=== PATIENT | male | born 1950 | race Caucasian/White ===

== ENCOUNTER 2019-10-27 23:26 | Inpatient (IN) | payer BC, MEDICARE ==
[2019-10-28] MEDS ORDERED: Vancomycin 1 GM/200 ML BAG ONE (00:16)
[2019-10-28 00:25] LABS: ALT (SGPT) 13 U/L (8-55); AST (SGOT) 15 U/L (5-34); Albumin 2.6 g/dL (3.4-4.8); Alkaline Phosphatase 125 U/L (40-110); Anion Gap 11 mmol/L (10-20); BUN (Urea Nitrogen) 37 mg/dL (8.4-25.7); Bilirubin, Total 0.5 mg/dL (0.2-1.2); Calc. Creatinine Clearance 0 mL/min (70-130); Calcium 8.7 mg/dL (7.8-10.44); Carbon Dioxide 33 mmol/L (23-31); Chloride 97 mmol/L (98-107); Estimated GFR-MDRD 86; Globulin 3.7 g/dL (2.4-3.5); Glucose 126 mg/dL (80-115); Potassium 3.8 mmol/L (3.5-5.1); Protein, Total 6.3 g/dL (5.8-8.1); Sodium 137 mmol/L (136-145)
[2019-10-28 00:34] LABS: Band 28 % (5-11); Eosinophils 1 % (0-10); Hemoglobin 16.1 g/dL (14.0-18.0); Lymphocytes 7 % (21-51); MDiff Complete? YES; Mean Corpuscular HGB CONC 32.1 g/dL (32.0-36.0); Mean Corpuscular Hemoglobin 30.9 pg (27.0-31.0); Mean Corpuscular Volume 96.2 fL (78.0-98.0); Mean Platelet Volume 10.5 fL (7.4-10.4); Monocytes 21 % (0-10); Neutrophil 43 % (42-75); Platelet Count 176 thou/uL (130-400); RBC Distribution Width 11.8 % (11.5-14.5); Red Blood Cell (RBC) Count 5.21 mill/uL (4.70-6.10); White Blood Cell (WBC) Count 17.5 thou/uL (4.8-10.8)
[2019-10-28] MEDS ORDERED: Ampicillin 2 GM VIAL ONE (01:21)
[2019-10-28] MEDS ORDERED: Ampicillin/Sulbactam 3 GM in Sodium Chloride 0.9% 100 ML IVPB SCH (01:30)
[2019-10-28] MEDS ORDERED: WATER IVPB SCH (04:00)
[2019-10-28] MEDS ORDERED: AMPHOTERICIN B IVPB SCH (04:00)
[2019-10-28] MEDS ORDERED: DEXTROSE 5% IVPB SCH (04:00)
[2019-10-28 04:52] VITALS: BMI 14.3
[2019-10-28] MEDS: Admixture Fee 1 EACH in Dextrose 5% in Water 10 ML FS SCH ×2 (05:18→09:35)
[2019-10-28] MEDS ORDERED: Acetaminophen 325 MG TAB PO PRN (07:37)
[2019-10-28] MEDS ORDERED: cloNIDine 0.1 MG TAB PO PRN (07:37)
[2019-10-28] MEDS ORDERED: Morphine 2 MG/ML SYRINGE SLOW IVP PRN (07:37)
[2019-10-28] MEDS ORDERED: Labetalol HCl 100 MG/20 ML VIAL SLOW IVP PRN (07:37)
[2019-10-28] MEDS ORDERED: Promethazine HCl 12.5 MG, Admixture Fee 1 EACH in Sodium Chloride 0.9% 50 ML IVPB PRN (07:37)
[2019-10-28] MEDS ORDERED: hydrALAZINE 20 MG/ML VIAL SLOW IVP PRN (07:37)
--- NOTE | 2019-10-28 07:42 | PDOC.HHP ---
Hospitalist HPI - History of Present Illness facial rash and swelling History of Present Illness: Patient is a 69 year old male with PMH CAD/2 stents, HTN who presents to ED for 10 day of L facial and eye swelling, pain. He reports very painful but still in good spirits. it is visibly draining a serosanguenous fluid. unable to open eye. reviewed CT with ED providers and appears to be abscess extending from L mandible to forehead including the eye. appears possibly fungal infection. vitals stable, mild tachycardia. WBC 17, CO2 33, Cr -0.88, CRP elevated, given IV abx vanc and unasyn and Dr Moura of [facility] consulted by ED and wiill see in AM, they are aware of seriousness of condition. Hospitalist ROS - Review of Systems Eyes: reports: pain, other (L eye swelling and pain) ENT: reports: ear pain, nose pain, mouth pain, mouth swelling, throat pain, other (L side of face pain and drainage) Respiratory: denies: cough, dry, shortness of breath, hemoptysis, SOB with excertion, pleuritic pain, sputum, wheezing, other Cardiovascular: denies: chest pain, palpitations, orthopnea, paroxysmal noc. dyspnea, edema, light headedness, other Gastrointestinal: denies: nausea, vomiting, abdominal pain, diarrhea, constipation, melena, hematochezia, other Genitourinary: denies: dysuria, frequency, incontinence, hematuria, retention, other Musculoskeletal: denies: neck pain, shoulder pain, arm pain, back pain, hand pain, leg pain, foot pain, other Skin: reports: rash, lesions. denies: yahir, bruising, other Neurological: denies: weakness, numbness, incoordination, change in speech, confusion, seizures, other All other systems reviewed; all pertinent +/- noted in HPI/Subj - Medication Medications: Active Medications Generic Name Dose Route Start Last Admin Trade Name Freq PRN Reason Stop Dose Admin Amphotericin B 250 mg/ 250 mls @ 132.567 mls/hr 10/28/19 04:00 10/28/19 05:17 Dextrose/Water IVPB 10/28/19 08:00 250 mls NOW NAIN Administration Miscellaneous Medication 1 10 mls @ 0 mls/hr 10/28/19 09:00 10/28/19 05:18 each/ Dextrose/Water FS 10 mls DAILY NAIN Administration As Directed Hospitalist History - Past Medical History Other Medical History: COPD, HTN, HLD, [place] X2 - Past Surgical History Other Surgical History: CARDIAC STENT PLACEMENT, ANGIOPLASTY, HERNIA REPAIR,. - Family History Family History: reports: no pertinent history - Social History Other Social History: Social History includes FORMER DRINKER Patient denies alcohol use Patient denies drug use Patient currently uses tobacco smokes cigarettes daily Patient has smoked for 25 years Patient smokes 1/2 packs per day. - Exam General Appearance: NAD, awake alert, ill appearing Eye - other findings: PERRL EOMI ENT: normocephalic atraumatic ENT - other findings: extensive L facial swelling in the mouth to eye red and cannot open eye. Neck: supple, symmetric, no JVD, no thyromegaly, no lymphadenopathy, no carotid bruit Neck - other findings: swelling of skin, no throat swelling or pharynx Respiratory: CTAB, no wheezes, no rales, no ronchi, normal chest expansion, no tachypnea, normal percussion Gastrointestinal: soft, non-tender, non-distended, normal bowel sounds, no palpable masses, no hepatomegaly, no splenomegaly, no bruit Extremities: no cyanosis, no clubbing, no edema Skin: normal turgor, no lesions, no rashes Neurological: cranial nerve grossly intact, normal sensation to touch, no weakness, no focal deficits, no new deficit Musculoskeletal: normal tone, normal strength, no muscle wasting Psychiatric: normal affect, normal behavior, A&O x 3 Hospitalist Results - Labs Result Diagrams: 10/27/19 23:55 10/27/19 23:55 Lab results: WBC 17.5 thou/uL (4.8-10.8) H 10/27/19 23:55 Hgb 16.1 g/dL (14.0-18.0) 10/27/19 23:55 Hct 50.2 % (42.0-52.0) 10/27/19 23:55 MCV 96.2 fL (78.0-98.0) 10/27/19 23:55 Plt Count 176 thou/uL (130-400) 10/27/19 23:55 Band Neuts % (Manual) 28 % (5-11) H 10/27/19 23:55 ESR Westergren 35 mm/hr (Less than 20) 10/28/19 00:00 Sodium 137 mmol/L (136-145) 10/27/19 23:55 Potassium 3.8 mmol/L (3.5-5.1) 10/27/19 23:55 Chloride 97 mmol/L (98-107) L 10/27/19 23:55 Carbon Dioxide 33 mmol/L (23-31) H 10/27/19 23:55 BUN 37 mg/dL (8.4-25.7) H 10/27/19 23:55 Creatinine 0.88 mg/dL (0.7-1.3) 10/27/19 23:55 Glucose 126 mg/dL (80-115) H 10/27/19 23:55 Lactic Acid 1.7 mmol/L (0.5-2.2) 10/27/19 23:55 Calcium 8.7 mg/dL (7.8-10.44) 10/27/19 23:55 Total Bilirubin 0.5 mg/dL (0.2-1.2) 10/27/19 23:55 AST 15 U/L (5-34) 10/27/19 23:55 ALT 13 U/L (8-55) 10/27/19 23:55 Alkaline Phosphatase 125 U/L (40-110) H 10/27/19 23:55 C-Reactive Protein 15.93 mg/dL (= or < 0.5) H 10/28/19 00:00 Serum Total Protein 6.3 g/dL (5.8-8.1) 10/27/19 23:55 Albumin 2.6 g/dL (3.4-4.8) L 10/27/19 23:55 Hospitalist H&P A/P - Plan Plan: # facial cellulitis # sepsis due to facial cellulitis and abscess suspect possible fungal vs bacterial abscess from dental origin, severe in appearance and concerning for mucormycosis or other fungal process - admit to IMCU - vanc, unasyn - given ampho B 1 dose and consult ID - [facility] Dr Moura to see, keep NPO, appreciate assistance
--- NOTE | 2019-10-28 08:19 | RAD ---
PORTABLE CHEST: HISTORY: COPD. Shortness of breath. COMPARISON: Comparison is made to a film of 2012. FINDINGS: Lungs show hyperexpansion consistent with COPD. No infiltrate or vascular congestion. Heart size no rmal. Old right rib fractures were again noted. IMPRESSION: Finding changes of chronic obstructive pulmonary disease. No acute process identified. POS: AGW
--- NOTE | 2019-10-28 09:19 | CT ---
PRELIMINARY REPORT/[facility]/EMERGENCY AFTER HOURS PROCEDURE: EXAM: CT Maxillofacial with Intravenous Contrast. CLINICAL HISTORY: Exam gross facial swelling no evidence of submandibular involvement. No airway comp romise. Gross eyelid swelling with drainage from eye. EOM intact no periorbital pain with movement ho wever there is periorbital pain to palpation. Patient ANO x4 suspect complex facial cellulitis likely originated in dental origin TECHNIQUE: Axial computed tomography images of the face with intravenous contrast. Sagittal and coron al reformations performed. CONTRAST: With; ISOVUE 370,100mL COMPARISON: None provided. FINDINGS: BONES: No acute fracture or focal osseous lesion. The mandible is intact. Multilevel degenerative disc dise ase with multilevel facet spondylosis. SOFT TISSUES: A large rim-enhancing fluid collection with peripheral enhancement and foci of air in the lumen exten ds from the left 70 with a region and extends superiorly along the left hemimandible with involvement of the medial pterygoid muscle and masseter muscle, and into the left temporal region and overlying the zygoma with involvement of the inferior eyelid. Significant surrounding fat stranding is noted. The fluid collection measures 7.4 cm AP by 3.3 cm transverse by 15.4 cm craniocaudal. Atheroscleros is of the bilateral carotid vessels. SINUSES: Mucosal thickening of the bilateral maxillary sinuses. ORBITS: The orbits are normal. No retrobulbar hematoma or mass. IMPRESSION: Large rim-enhancing fluid collection with foci of air in the lumen consistent with an abscess extendi ng from the left submandibular region into the left temporal region and the inferior left eyelid with significant inflammatory change. ELECTRONICALLY SIGNED BY: Pako Palmer MD Oct 28, 2019 2:06:27 AM CDT This report is intended for review by the ordering physician only, in accordance of law. If you recei ve this report in error, please call [facility] at [phone]. FINAL REPORT CT NECK WITH CONTRAST: Date: FINDINGS: There is a large abscess involving the left neck and face. This abscess begins in the left submandibu lar region and is seen to extend to both sides of the mandible involving buccal and lingual surfaces. It involves the submandibular space and extends superior to involve the proposition player muscle on the lef t. It extends superiorly into the left temporal region and left orbit. No definite parapharyngeal or retropharyngeal extension. I am in agreement with the preliminary report issued by [facility]. POS: AGW
--- NOTE | 2019-10-28 09:30 | CON ---
DATE OF CONSULTATION: 10/28/2019 HISTORY OF PRESENT ILLNESS: Washington Gonzalez is a 69-year-old cachectic gentleman, who apparently came from home with facial swelling on the left side, foul-smelling discharge, left eye swollen. He is in the MICU, reason for consult. PAST MEDICAL HISTORY: Pertinent for COPD, hypertension, coronary artery disease. PREVIOUS SURGERIES: Cardiac stent, angioplasty, hernia repair. SOCIAL HISTORY: Still smokes half pack a day. Former drinker. MEDICATIONS: Medicine at this stage from home, unknown. ALLERGIES: UNKNOWN. REVIEW OF SYSTEMS: Otherwise, unremarkable. PHYSICAL EXAMINATION: GENERAL: He is cachectic, elderly gentleman with swelling on the left side of his face. Left eye is swollen, it is drooping. Foul-smelling discharge from the mouth. VITAL SIGNS: Temperature 98.6, blood pressure 120/66, respirations 18, pulse 80. CHEST: Decreased breath sounds. No wheezing. CARDIAC: Normal S1, S2. No gallops. ABDOMEN: No masses. LABORATORY DATA: White count 17,000, H and H are 16 and 50, platelet count is normal. Lytes are normal. ASSESSMENT: 1. Cellulitis, facial, posterior pharyngeal. 2. Chronic obstructive pulmonary disease. 3. Cachexia. PLAN: Continue antibiotics as ordered by Infectious Disease. Supportive care. Surgery to assess the extent of his infection. Appropriate intervention. Agree with ongoing neb treatments for underlying COPD. We will follow while in the MICU. I have added clindamycin for his anaerobic infection. 70 minutes of consultation note, 50% direct patient care. Job ID: [id number]
[2019-10-28] MEDS: Enoxaparin Sodium 40 MG/0.4 ML SYRINGE SC SCH ×2 (09:35→18:58)
[2019-10-28] MEDS: Polyethylene Glycol 3350 17 GM Packet PO SCH (09:36)
[2019-10-28] MEDS: Famotidine 20 MG TAB PO SCH ×2 (09:43→21:13)
--- NOTE | 2019-10-28 09:57 | CT ---
PRELIMINARY REPORT/[facility]/EMERGENCY AFTER HOURS PROCEDURE EXAM: CT Maxillofacial with Intravenous Contrast. CLINICAL HISTORY: Exam gross facial swelling no evidence of submandibular involvement. No airway compromise. Gross eyel id swelling with drainage from eye. EOM intact no periorbital pain with movement however there is per iorbital pain to palpation. Patient ANO x4 suspect complex facial cellulitis likely originated in den joshua origin TECHNIQUE: Axial computed tomography images of the face with intravenous contrast. Sagittal and coronal reformat ions performed. CONTRAST: With; ISOVUE 370,100mL COMPARISON: None provided. FINDINGS: BONES: No acute fracture or focal osseous lesion. The mandible is intact. Multilevel degenerative disc dise ase with multilevel facet spondylosis. SOFT TISSUES: A large rim-enhancing fluid collection with peripheral enhancement and foci of air in the lumen exten ds from the left 70 with a region and extends superiorly along the left hemimandible with involvement of the medial pterygoid muscle and masseter muscle, and into the left temporal region and overlying the zygoma with involvement of the inferior eyelid. Significant surrounding fat stranding is noted. The fluid collection measures 7.4 cm AP by 3.3 cm transverse by 15.4 cm craniocaudal. Atheroscleros is of the bilateral carotid vessels. SINUSES: Mucosal thickening of the bilateral maxillary sinuses. ORBITS: The orbits are normal. No retrobulbar hematoma or mass. IMPRESSION: Large rim-enhancing fluid collection with foci of air in the lumen consistent with an abscess extendi ng from the left submandibular region into the left temporal region and the inferior left eyelid with significant inflammatory change. ELECTRONICALLY SIGNED BY: Pako Palmer MD Oct 28, 2019 2:06:27 AM CDT This report is intended for review by the ordering physician only, in accordance of law. If you recei ve this report in error, please call [facility] at [phone]. FINAL REPORT CT FACE WITH CONTRAST: Axial tomograms were obtained with multiplanar reconstruction. INDICATION: Facial and periorbital cellulitis. FINDINGS: Extensive abscess is seen involving the left face. This abscess begins in the submandibular region a nd involves the submandibular and submental space. It is seen on both sides of the mandible involvi ng lingual and buccal structures of the left mandible. It extends superiorly over the left face invo lving the left masseter muscle. It extends to the left parotid gland posteriorly. It continues to e xtend superiorly over the left temporal region and left orbit. IMPRESSION: Extensive left facial abscess. I am in agreement with the preliminary report. POS: LAUREN
[2019-10-28] MEDS: Sodium Chloride 0.9% 1,000 ML IV SCH ×2 (10:04→21:24)
[2019-10-28] MEDS: Ampicillin/Sulbactam 3 GM in Sodium Chloride 0.9% 100 ML IVPB SCH ×3 (10:04→20:20)
[2019-10-28] MEDS: Vancomycin HCl 750 MG in Sodium Chloride 0.9% 250 ML 250 ML IVPB SCH (10:05)
[2019-10-28] MEDS ORDERED: Iopamidol-370 76% 500 ML 1 ML ONE (10:26)
[2019-10-28] MEDS: Clindamycin/D5W 600 MG in Premix Bag 1 BAG IVPB SCH ×2 (14:39→21:13)
[2019-10-28] MEDS: Saccharomyces boulardii 250 MG CAP PO SCH (21:13)
[2019-10-29] MEDS: Ampicillin/Sulbactam 3 GM in Sodium Chloride 0.9% 100 ML IVPB SCH ×3 (02:22→14:30)
[2019-10-29 04:20] LABS: Band 23 % (5-11); Eosinophils 3 % (0-10); Lymphocytes 7 % (21-51); MDiff Complete? YES; Mean Corpuscular Hemoglobin 31.7 pg (27.0-31.0); Mean Corpuscular Volume 99.1 fL (78.0-98.0); Mean Platelet Volume 10.4 fL (7.4-10.4); Monocytes 10 % (0-10); Myelocyte 1 % (0-0); Neutrophil 56 % (42-75); Platelet Count 163 thou/uL (130-400); RBC Distribution Width 11.8 % (11.5-14.5); Red Blood Cell (RBC) Count 4.41 mill/uL (4.70-6.10); White Blood Cell (WBC) Count 15.8 thou/uL (4.8-10.8)
[2019-10-29 04:24] LABS: ALT (SGPT) 10 U/L (8-55); AST (SGOT) 17 U/L (5-34); Albumin 2.2 g/dL (3.4-4.8); Alkaline Phosphatase 102 U/L (40-110); Anion Gap 9 mmol/L (10-20); BUN (Urea Nitrogen) 16 mg/dL (8.4-25.7); Bilirubin, Total 0.3 mg/dL (0.2-1.2); Calc. Creatinine Clearance 77 mL/min (70-130); Calcium 8.1 mg/dL (7.8-10.44); Carbon Dioxide 34 mmol/L (23-31); Chloride 104 mmol/L (98-107); Estimated GFR-MDRD Greater than 90; Glucose 88 mg/dL (80-115); Magnesium 1.9 mg/dL (1.6-2.6); Potassium 3.8 mmol/L (3.5-5.1); Protein, Total 5.2 g/dL (5.8-8.1); Sodium 143 mmol/L (136-145)
[2019-10-29] MEDS: Clindamycin/D5W 600 MG in Premix Bag 1 BAG IVPB SCH ×2 (06:16→14:22)
[2019-10-29] MEDS ORDERED: Lidocaine 1% w/Epinephrine 1:100K 20 ML VIAL ONE (06:59)
[2019-10-29] MEDS ORDERED: Chlorhexidine Gluconate 15 ML UDCUP SSP ONE (06:59)
[2019-10-29] MEDS ORDERED: Hydrocortisone 1% Cream 30 GM TUBE ONE (06:59)
[2019-10-29] MEDS ORDERED: Bacitracin Zinc Ointment 30 gm TUBE ONE (06:59)
[2019-10-29] MEDS ORDERED: Sodium Chloride 0.9% 10 ML ONE (07:42)
[2019-10-29] MEDS: Admixture Fee 1 EACH in Dextrose 5% in Water 10 ML FS SCH (09:24)
[2019-10-29] MEDS: Famotidine 20 MG TAB PO SCH ×2 (09:24→21:30)
[2019-10-29] MEDS: Polyethylene Glycol 3350 17 GM Packet PO SCH (09:25)
--- NOTE | 2019-10-29 09:29 | PDOC.HOSPP ---
- Subjective Encounter Date: 10/29/19 Encounter Time: 07:00 Subjective: no overnight events. This morning, no complaints of shortness of breath. Pending removal of infected implants. - Objective Vital Signs & Weight: Vital Signs (12 hours) Temp Pulse Ox 10/29/19 07:24 100 10/29/19 07:10 96.1 F L 10/29/19 04:57 98.1 F 10/29/19 00:00 97.2 F L Weight Admit Weight 105 lb 9.6 oz Weight 105 lb 9.6 oz Most Recent Monitor Data Heart Rate from ECG 93 NIBP 146/67 NIBP BP-Mean 93 Respiration from ECG 31 SpO2 100 I&O: 10/28/19 10/29/19 10/30/19 06:59 06:59 06:59 Intake Total 320 1725 Output Total 240 550 Balance 80 1175 Result Diagrams: 10/29/19 03:13 10/29/19 03:13 Hospitalist ROS - Review of Systems Constitutional: denies: fever, chills, sweats ENT: reports: mouth pain. denies: throat pain Respiratory: denies: cough, shortness of breath, wheezing Cardiovascular: denies: chest pain, palpitations, orthopnea, paroxysmal noc. dyspnea, edema Gastrointestinal: denies: nausea, vomiting - Medication Medications: Active Medications Generic Name Dose Route Start Last Admin Trade Name Freq PRN Reason Stop Dose Admin Enoxaparin Sodium 40 mg 10/28/19 09:00 10/28/19 18:58 Lovenox SC Not Given 0900 NAIN Famotidine 20 mg 10/28/19 09:00 10/29/19 09:24 Pepcid PO Not Given BID NAIN Miscellaneous Medication 1 10 mls @ 0 mls/hr 10/28/19 09:00 10/29/19 09:24 each/ Dextrose/Water FS Not Given DAILY NAIN As Directed Ampicillin Sodium/Sulbactam 100 mls @ 200 mls/hr 10/28/19 08:00 10/29/19 02: 22 Sodium 3 gm/ Sodium Chloride IVPB 100 mls Q6H NAIN Administration Sodium Chloride 1,000 mls @ 125 mls/hr 10/28/19 07:45 10/28/19 21:24 Normal Saline 0.9% IV 1,000 mls .Q8H NAIN Administration Vancomycin HCl 750 mg/ Sodium 250 mls @ 250 mls/hr 10/28/19 09:00 10/28/19 10 :05 Chloride IVPB 11/04/19 09:01 250 mls Q24HR NAIN Administration Clindamycin Phosphate/Dextrose 50 mls @ 100 mls/hr 10/28/19 14:00 10/29/19 06 :16 600 mg/ Device IVPB 50 mls Q8HR NAIN Administration Polyethylene Glycol 17 gm 10/28/19 09:00 10/29/19 09:25 Miralax PO Not Given DAILY NAIN Saccharomyces Boulardii 250 mg 10/28/19 21:00 10/28/19 21:13 Florastor PO 250 mg HS NAIN Administration Sodium Chloride 10 ml 10/28/19 09:00 10/28/19 21:13 Flush - Normal Saline IVF 10 ml Q12HR NAIN Administration - Exam General Appearance: awake alert General - other findings: in mild distress due to facial pain Eye - other findings: left periorbital swellind and drainage ENT - other findings: oral swelling, mostly on left; could not assess oral cavity due to swelling Heart: RRR, no murmur, no gallops Respiratory: no wheezes, no rales, no ronchi Respiratory - other findings: diffusely redued breath sounds; no wheezing, RR ~ 20 Extremities: no edema Hosp A/P - Plan #facial cellulitis #infected dental implants -pending removal of implants. -on clindamycin, unasyn, vanc; defer to ID regarding continuation of all three considering clindamycin has MRSA coverage and oral anaerobic coverage #COPD -curently stable -continue duoneb PRN SOB/wheezing #HTN -continue current regimen #dispoisition/ppx full code DVT PPx Lovenox GI PPx pepcid
[2019-10-29] MEDS: Sodium Chloride 0.9% 1,000 ML IV SCH (09:33)
[2019-10-29] MEDS ORDERED: Fentanyl 100 MCG/2 ML VIAL ONE (10:24)
[2019-10-29] MEDS ORDERED: HYDROmorphone 0.5 MG/0.5 ML SYRINGE ONE (10:24)
[2019-10-29] MEDS ORDERED: AFRIN NASAL MIST 15 ML BOT ONE (10:34)
[2019-10-29] MEDS ORDERED: Lidocaine 2% Jelly 5 ML TUBE ONE (10:34)
[2019-10-29] MEDS ORDERED: Phenylephrine 10 MG/ML VIAL ONE (11:17)
[2019-10-29] MEDS ORDERED: Lidocaine 1% PF 5 ML VIAL ONE (11:30)
[2019-10-29] MEDS ORDERED: Naloxone HCl 0.4 mg/ml Vial ONE (11:30)
[2019-10-29] MEDS ORDERED: PROPOFOL 200 MG/20 ML VIAL ONE (11:30)
[2019-10-29] MEDS ORDERED: PHENYLEPHRINE-NS 100 MCG/ML 10 ML SYRINGE ONE (11:30)
[2019-10-29] MEDS ORDERED: EPHEDRINE 25 MG/5 ML SYRINGE ONE (11:30)
[2019-10-29] MEDS ORDERED: Rocuronium Bromide 10 MG/ML (10ML VIAL) ONE (11:30)
[2019-10-29] MEDS ORDERED: Glycopyrrolate 0.2 MG/ML 5 ML SYRINGE ONE (11:30)
[2019-10-29] MEDS ORDERED: SUGAMMADEX SODIUM 200 MG/2 ML VIAL ONE (12:40)
[2019-10-29] MEDS: Vancomycin HCl 750 MG in Sodium Chloride 0.9% 250 ML 250 ML IVPB SCH (14:22)
--- NOTE | 2019-10-29 17:16 | CON ---
DATE OF CONSULTATION: 10/29/2019 REASON FOR CONSULTATION: Facial inflammatory process. HISTORY OF PRESENT ILLNESS: A 69-year-old who has a history of COPD, hypertension, and coronary artery disease with prior MT and cardiac stenting, history of alcoholism in the past, but not current, and chronic smoking, who developed jaw pain with swelling, which started to spread all the way to the periorbital tissues with marked periorbital edema, some blood and cloudy fluid emanating from mouth, apparently has some dental implants in the bottom, some headaches. No fever. Cannot make any statement on the status of his left vision because of the eyelid swelling, but he is not vomiting. No dyspnea or chest pain. No abdominal pain or diarrhea. Voiding without difficulty at least until more recently. He has no joint symptoms and no neurological symptoms. MEDICAL HISTORY: 1. COPD. 2. Hypertension. 3. Hyperlipidemia. 4. Coronary artery disease. 5. MT x2. 6. Alcoholism, in remission. 7. Chronic smoking, still active. SURGICAL HISTORY: 1. Hernia repair. 2. Stenting. 3. Angioplasty. SOCIAL HISTORY: As above. Lives with family. ALLERGIES: NONE. CURRENT MEDICATIONS: Include: 1. P.r.n. medications and inhalers. 2. Unasyn. 3. Clindamycin. 4. Enoxaparin. 5. Pepcid. 6. Vancomycin. PHYSICAL EXAMINATION: VITAL SIGNS: T-max 98, BP 119/64, pulse 95, respirations 20, and O2 saturation 99. SKIN: The erythema involving the left side of the face. He has areas of I and D by oral surgeon, which was carried out today with packing particularly in submandibular region. He had some teeth extracted apparently. HEENT: I was able to see his orbit on the left side and a little bit of conjunctival hyperemia, but the cornea appears clear and the pupils are constricted. There is a little bit of a whitish film overlying the orbit that is removable. The eye movements appear to be intact. The right orbit is normal. The pupils are equal. Oral cavity is difficult to examine. He does have significant amount of trismus. NECK: There is no jugular vein distention. LUNGS: Symmetric air entry. HEART: S1 and S2. Regular rate. No S3 or S4. ABDOMEN: Soft, not distended or tender except for the suprapubic area where there is an apparent fully distended bladder. When asked, the patient stated that he was not feeling the urge to urinate. GENITAL: Not particularly remarkable. EXTREMITIES: The patient has obvious wasting syndrome with temporal wasting and muscle wasting in the lower extremities and upper extremities. His pulses are 1+ in dorsalis pedis and he has quite significant onychodystrophy. He is able to move extremities. Plantar responses are flexor. No clonus. NEUROLOGIC: I was not able to fully interview the patient because he was just postoperatively under the effect of anesthesia and analgesia. LABORATORY DATA: White cell count was 17 and now 15, hemoglobin 14, platelets 163 with 28% bands down to 23%. Chemistry with a creatinine was 0.88 and 0.62. Liver profile is normal. CRP 15. Albumin 2.2. Serology, there is negative HIV from 2012 and negative hepatitis C from 2017. IMAGING STUDIES: We have a chest from 2 days ago with chronic obstructive lung disease, no infiltrates. Facial bone CT with gross facial swelling, no submandibular involvement, no air compromise. There is a large rim-enhancing fluid collection, foci of air in the lumen, consistent with an abscess extending from the left submandibular region into the left temporal region and inferior eyelid, significant inflammatory change. There is involvement of the tipple repairer space. It measures 7.4 x 3.3 x 15.4, which is quite large fluid collection. Soft tissue neck CT as above. ASSESSMENT: 1. History of alcoholism, in remission presumably. 2. Chronic smoking. 3. Decaying teeth. 4. Periodontal infection with extension to the tipple repairer space and then up towards the periorbital area, malar region. The patient is status post I and D of the area by oral surgeon. DISCUSSION: The patient has an odontogenic infection involving the tipple repairer space and extending towards the upper segments of the facial area, soft tissues and periorbital tissues. This is not an infection associated with sinus involvement and he does not have diabetes, so it is very likely that we have the usual oral elroy organisms, such as microaerophilic pathogens and strict anaerobes including streptococci, fusobacterium, prevotella, and so on. We will switch him to meropenem. Discontinue remainder antimicrobials and wait on culture results. Sometimes those patients may develop intracranial complications as well as involvement of vascular bundle and retropharyngeal space, but that is not apparent at this point in time. Job ID: [id number]
[2019-10-29] MEDS: MEROPENEM 1 GM/50 ML 1 GM in Premix Bag 1 BAG IVPB SCH (17:39)
[2019-10-29] MEDS: Saccharomyces boulardii 250 MG CAP PO SCH (21:30)
[2019-10-29] MEDS: Chlorhexidine Gluconate 15 ML UDCUP SSP SCH (21:30)
[2019-10-30] MEDS: Sodium Chloride 0.9% 1,000 ML IV SCH ×3 (02:04→23:44)
[2019-10-30] MEDS: MEROPENEM 1 GM/50 ML 1 GM in Premix Bag 1 BAG IVPB SCH ×4 (02:05→23:44)
[2019-10-30 04:13] LABS: Band 11 % (5-11); Hemoglobin 13.4 g/dL (14.0-18.0); Lymphocytes 9 % (21-51); MDiff Complete? YES; Mean Corpuscular HGB CONC 31.8 g/dL (32.0-36.0); Mean Corpuscular Hemoglobin 31.6 pg (27.0-31.0); Mean Corpuscular Volume 99.5 fL (78.0-98.0); Mean Platelet Volume 10.1 fL (7.4-10.4); Monocytes 9 % (0-10); Myelocyte 2 % (0-0); Neutrophil 69 % (42-75); Platelet Count 173 thou/uL (130-400); Platelet Morphology Comment Appears Adequate; RBC Distribution Width 11.9 % (11.5-14.5); Red Blood Cell (RBC) Count 4.22 mill/uL (4.70-6.10); White Blood Cell (WBC) Count 18.8 thou/uL (4.8-10.8)
[2019-10-30] MEDS: Chlorhexidine Gluconate 15 ML UDCUP SSP SCH ×2 (09:26→20:21)
[2019-10-30] MEDS: HYDROcodone/Acetaminophen 5/325 mg Tablet PO PRN (09:27)
[2019-10-30] MEDS: Famotidine 20 MG TAB PO SCH (09:27)
[2019-10-30] MEDS: Polyethylene Glycol 3350 17 GM Packet PO SCH (09:27)
[2019-10-30] MEDS: Enoxaparin Sodium 40 MG/0.4 ML SYRINGE SC SCH (09:27)
--- NOTE | 2019-10-30 13:38 | PRG ---
DATE OF SERVICE: 10/30/2019 SUBJECTIVE: A 69-year-old patient, status post surgical intervention for multiple facial abscesses. OBJECTIVE: VITAL SIGNS: Temperature 97, blood pressure 101/46, respiratory rate 18, and sats 100%. CHEST: Decreased breath sounds. No wheezing. CARDIAC: Normal S1 and S2. No gallops. ABDOMEN: No masses. ASSESSMENT: 1. Multiple facial abscess, status post I and D and multiple drains. 2. Respiratory failure. 3. Alcohol abuse. PLAN: Pulmonary Critical Care will follow. Antibiotic as per Infectious Disease. Supportive care. Job ID: [id number]
--- NOTE | 2019-10-30 14:10 | PRG ---
DATE OF SERVICE: 10/30/2019 SUBJECTIVE: The patient is awake, oriented, follows commands. Feels better. A little bit of pain in the abdomen. Feels his bladder is full right now. OBJECTIVE: VITAL SIGNS: Temperature max 98.1, blood pressure 101/46, heart rate is 99, O2 saturation 100% with mask. HEENT: Ocular movements are conjugate. Sclerae are white. Conjunctivae have cleared. HEART: S1 and S2. Regular rate. LUNGS: Symmetric air entry. ABDOMEN: With mild tenderness here and there, but soft, not distended. I did not actually see and evaluate any bladder distention, muscle wasting. NEUROLOGIC: He moves all extremities equally. LABORATORY DATA: Sodium 143, creatinine 0.62, albumin 2.2. White cell count is 18; but the bands are down to 11, which is a marked improvement; hemoglobin 13.4; and micro still waiting to result. ASSESSMENT AND DISCUSSION: Alcoholism in remission presumably, chronic smoking, decaying teeth, periodontal infection with extension of the food service aide space and then up towards the periorbital area, status post surgical debridement, likely polymicrobial elroy. Continue meropenem and supportive measures. Job ID: [id number]
--- NOTE | 2019-10-30 15:07 | PDOC.HOSPP ---
- Subjective Encounter Date: 10/30/19 Encounter Time: 09:00 Subjective: overnight, I&D of facial abscess and infected dental implant. This morning, feeling better, swelling improved. Has no complaints. - Objective Vital Signs & Weight: Vital Signs (12 hours) Temp Pulse Ox 10/30/19 11:27 97.7 F 10/30/19 08:00 98 10/30/19 07:25 98.0 F 10/30/19 04:00 97.9 F Weight Admit Weight 105 lb 9.6 oz Weight 105 lb 9.6 oz Most Recent Monitor Data Heart Rate from ECG 99 NIBP 101/46 NIBP BP-Mean 64 Respiration from ECG 27 SpO2 100 I&O: 10/29/19 10/30/19 10/31/19 06:59 06:59 06:59 Intake Total 3125 Output Total 550 Balance 2575 Result Diagrams: 10/30/19 03:16 10/29/19 03:13 Hospitalist ROS - Review of Systems Constitutional: denies: chills, sweats ENT: denies: mouth pain, throat pain Respiratory: denies: cough, shortness of breath, pleuritic pain Cardiovascular: denies: chest pain, palpitations, light headedness Gastrointestinal: denies: nausea, vomiting - Medication Medications: Active Medications Generic Name Dose Route Start Last Admin Trade Name Freq PRN Reason Stop Dose Admin Hydrocodone Bitart/Acetaminophen 1 tab 10/28/19 07:37 10/30/19 09:27 [place] 5/325 PO 1 tab Q4H PRN Administration Moderate Pain (4-6) Chlorhexidine Gluconate 15 ml 10/29/19 21:00 10/30/19 09:26 Chlorhexidine Gluconate SSP 15 ml BID NAIN Administration Enoxaparin Sodium 40 mg 10/28/19 09:00 10/30/19 09:27 Lovenox SC 40 mg 0900 NAIN Administration Famotidine 20 mg 10/28/19 09:00 10/30/19 09:27 Pepcid PO 20 mg BID NAIN Administration Sodium Chloride 1,000 mls @ 125 mls/hr 10/28/19 07:45 10/30/19 02:04 Normal Saline 0.9% IV 1,000 mls .Q8H NAIN Administration Meropenem 1 gm/ Device 50 mls @ 100 mls/hr 10/29/19 16:00 10/30/19 09:26 IVPB 50 mls 0800,1600,2359 NAIN Administration Polyethylene Glycol 17 gm 10/28/19 09:00 10/30/19 09:27 Miralax PO 17 gm DAILY NAIN Administration Saccharomyces Boulardii 250 mg 10/28/19 21:00 10/29/19 21:30 Florastor PO 250 mg HS NAIN Administration Sodium Chloride 10 ml 10/28/19 09:00 10/30/19 09:28 Flush - Normal Saline IVF 10 ml Q12HR NAIN Administration - Exam General Appearance: NAD, awake alert ENT - other findings: clean bandages overyling head, neck, and maxillary drainage tubes. Heart: RRR, no murmur, no gallops, no rubs Respiratory: CTAB, no wheezes, no rales, no ronchi Respiratory - other findings: reduced breath sound throughout likely due to lack of effort Extremities: no edema Hosp A/P - Plan #facial abscesses #infected dental implants -POD 1 s/p I&D; tolerated procedure well -continue meropenem per ID for polymicrobial coverage pending wound cultures #COPD -curently stable -continue duoneb PRN SOB/wheezing #HTN -continue current regimen #dispoisition/ppx full code DVT PPx Lovenox GI PPx no Ix Transfer to medical floor if stable overnight
[2019-10-31 04:54] LABS: Anion Gap 13 mmol/L (10-20); BUN (Urea Nitrogen) 15 mg/dL (8.4-25.7); Calc. Creatinine Clearance 68 mL/min (70-130); Calcium 8.1 mg/dL (7.8-10.44); Carbon Dioxide 30 mmol/L (23-31); Chloride 106 mmol/L (98-107); Estimated GFR-MDRD Greater than 90; Glucose 73 mg/dL (80-115); Potassium 3.8 mmol/L (3.5-5.1); Sodium 145 mmol/L (136-145)
[2019-10-31 05:02] LABS: Band 11 % (5-11); Hemoglobin 12.7 g/dL (14.0-18.0); Lymphocytes 5 % (21-51); MDiff Complete? YES; Mean Corpuscular HGB CONC 32.5 g/dL (32.0-36.0); Mean Corpuscular Volume 98.6 fL (78.0-98.0); Mean Platelet Volume 10.2 fL (7.4-10.4); Monocytes 5 % (0-10); Myelocyte 2 % (0-0); Neutrophil 77 % (42-75); Platelet Count 194 thou/uL (130-400); RBC Distribution Width 11.9 % (11.5-14.5); Red Blood Cell (RBC) Count 3.98 mill/uL (4.70-6.10); White Blood Cell (WBC) Count 18.2 thou/uL (4.8-10.8)
--- NOTE | 2019-10-31 07:41 | PDOC.HOSPP ---
- Subjective Encounter Date: 10/31/19 Encounter Time: 07:00 Subjective: no overnight events. this morning, feeling well and has no complaints. - Objective Vital Signs & Weight: Vital Signs (12 hours) Temp 10/31/19 07:20 98.8 F 10/31/19 03:40 97.6 F 10/31/19 00:40 98.1 F Weight Admit Weight 105 lb 9.6 oz Weight 105 lb 9.6 oz Most Recent Monitor Data Heart Rate from ECG 94 NIBP 139/91 NIBP BP-Mean 107 Respiration from ECG 23 SpO2 97 I&O: 10/30/19 10/31/19 11/01/19 06:59 06:59 06:59 Intake Total 3125 2387.5 Output Total 550 Balance 2575 2387.5 Result Diagrams: 10/31/19 03:24 10/31/19 03:24 Hospitalist ROS - Review of Systems Constitutional: denies: chills, sweats Eyes: denies: pain ENT: denies: ear pain, nose pain, mouth pain Respiratory: denies: cough, shortness of breath Cardiovascular: denies: chest pain, palpitations Gastrointestinal: denies: nausea, vomiting - Medication Medications: Active Medications Generic Name Dose Route Start Last Admin Trade Name Freq PRN Reason Stop Dose Admin Hydrocodone Bitart/Acetaminophen 1 tab 10/28/19 07:37 10/30/19 09:27 [place] 5/325 PO 1 tab Q4H PRN Administration Moderate Pain (4-6) Chlorhexidine Gluconate 15 ml 10/29/19 21:00 10/30/19 20:21 Chlorhexidine Gluconate SSP 15 ml BID NAIN Administration Enoxaparin Sodium 40 mg 10/28/19 09:00 10/30/19 09:27 Lovenox SC 40 mg 0900 NAIN Administration Sodium Chloride 1,000 mls @ 125 mls/hr 10/28/19 07:45 10/30/19 23:44 Normal Saline 0.9% IV 1,000 mls .Q8H NAIN Administration Meropenem 1 gm/ Device 50 mls @ 100 mls/hr 10/29/19 16:00 10/30/19 23:44 IVPB 50 mls 0800,1600,2359 NAIN Administration Morphine Sulfate 2 mg 10/28/19 07:37 10/30/19 18:30 Morphine SLOW IVP 2 mg Q4H PRN Administration severe pain 4-10 Polyethylene Glycol 17 gm 10/28/19 09:00 10/30/19 09:27 Miralax PO 17 gm DAILY NAIN Administration Sodium Chloride 10 ml 10/28/19 09:00 10/30/19 20:21 Flush - Normal Saline IVF 10 ml Q12HR NAIN Administration - Exam General Appearance: NAD, awake alert Eye: PERRL ENT - other findings: facial swelling improved. Dressings with no fresh blood Heart: RRR, no murmur, no gallops Respiratory: CTAB, no wheezes, no rales Respiratory - other findings: mildly reduced breath sounds throughout Gastrointestinal: soft, non-tender, non-distended, normal bowel sounds Extremities: no edema Psychiatric: normal affect, normal behavior, oriented to person, oriented to time. negative: oriented to place Hosp A/P - Plan #facial abscesses #infected dental implants -POD 2 s/p I&D; tolerated procedure well -continue meropenem per ID for polymicrobial coverage pending wound cultures #COPD -curently stable -continue duoneb PRN SOB/wheezing #HTN -continue current regimen #dispoisition/ppx full code DVT PPx Lovenox GI PPx no Ix Transfer to medical floor
[2019-10-31] MEDS: Sodium Chloride 0.9% 1,000 ML IV SCH ×4 (09:42→23:30)
[2019-10-31] MEDS: MEROPENEM 1 GM/50 ML 1 GM in Premix Bag 1 BAG IVPB SCH ×3 (09:42→23:30)
[2019-10-31] MEDS: Chlorhexidine Gluconate 15 ML UDCUP SSP SCH ×2 (09:44→21:02)
[2019-10-31] MEDS: Enoxaparin Sodium 40 MG/0.4 ML SYRINGE SC SCH (09:44)
[2019-10-31] MEDS: Polyethylene Glycol 3350 17 GM Packet PO SCH (09:45)
--- NOTE | 2019-10-31 10:20 | PRG ---
DATE OF SERVICE: 10/31/2019 SUBJECTIVE: A 69-year-old gentleman. This morning, he is much more awake, alert, and responsive. OBJECTIVE: VITAL SIGNS: Temperature 98, blood pressure 139/91, saturations 96% on room air, respiratory rate 18. GENERAL: Much improvement in his facial swelling and edema. CHEST: Decreased breath sounds. No wheezing. CARDIAC: Normal S1, S2. No gallops. ABDOMEN: No masses. IMPRESSION: 1. Multiple anaerobic infections, face and neck. 2. Alcohol abuse. 3. Tobacco abuse. 4. Chronic obstructive pulmonary disease. PLAN: Antibiotics per Infectious Disease. Pulmonary has not much to offer. Please call if needed. Job ID: [id number]
[2019-11-01 06:46] LABS: Band 13 % (5-11); Hemoglobin 12.4 g/dL (14.0-18.0); Lymphocytes 7 % (21-51); MDiff Complete? YES; Mean Corpuscular HGB CONC 33.3 g/dL (32.0-36.0); Mean Corpuscular Hemoglobin 32.3 pg (27.0-31.0); Mean Platelet Volume 10.5 fL (7.4-10.4); Monocytes 8 % (0-10); Myelocyte 4 % (0-0); Neutrophil 68 % (42-75); Platelet Count 172 thou/uL (130-400); RBC Distribution Width 12.1 % (11.5-14.5); Red Blood Cell (RBC) Count 3.85 mill/uL (4.70-6.10); White Blood Cell (WBC) Count 10.5 thou/uL (4.8-10.8)
[2019-11-01] MEDS: Sodium Chloride 0.9% 1,000 ML IV SCH ×2 (08:14→15:53)
[2019-11-01] MEDS: Enoxaparin Sodium 40 MG/0.4 ML SYRINGE SC SCH (08:14)
[2019-11-01] MEDS: Chlorhexidine Gluconate 15 ML UDCUP SSP SCH ×2 (08:14→21:22)
[2019-11-01] MEDS: MEROPENEM 1 GM/50 ML 1 GM in Premix Bag 1 BAG IVPB SCH ×2 (08:14→15:53)
[2019-11-01] MEDS: Polyethylene Glycol 3350 17 GM Packet PO SCH (08:15)
[2019-11-01] MEDS ORDERED: Mometasone 200 MCG/Formoterol 5 MCG 120 PUFF INHALER INH SCH (12:30)
--- NOTE | 2019-11-01 13:51 | PRG ---
DATE OF SERVICE: 11/01/2019 SUBJECTIVE: Much improved orbit on the left side and now it is clearly visible. The conjunctivae are normal. He is able to close his eyes. He still has a dressing in place over the surgical incisions. Trismus is much improved. He has no breathing issues. No abdominal pain or diarrhea. He has been afebrile. OBJECTIVE: VITAL SIGNS: Blood pressure 130/70, pulse 76, respirations 18 to 20, O2 saturation 93%. LUNGS: Clear to auscultation and percussion. HEART: S1 and S2. Regular rate. ABDOMEN: Soft, not distended. LABORATORY DATA: White cell count is down to 10.5, hemoglobin 12.4, platelets 172. Creatinine 0.7. Microbiology with again still polymicrobial elroy likely the usual pathogens such as one sees in oral cavity is bacteria Prevotella and so on. The patient with steady improvement, I think eventually will be able to transition to oral Augmentin for continuation of therapy. The duration of therapy will be probably at least 2 weeks. If there is osteomyelitis associated with this process, it does not appear to be the case after discussions with the oral surgeon. Job ID: [id number]
--- NOTE | 2019-11-01 16:24 | PDOC.HOSPP ---
- Subjective Encounter Date: 11/01/19 Encounter Time: 11:00 Subjective: no overnight events. this morning, feeling better overall and has no complaints with exception of shortness of breath. restarted breathing treatments for his COPD. - Objective Vital Signs & Weight: Vital Signs (12 hours) Temp Pulse Resp BP Pulse Ox 11/01/19 12:44 93 L 11/01/19 12:38 76 20 93 L 11/01/19 12:25 76 20 93 L 11/01/19 11:31 97.6 F 79 18 139/73 93 L 11/01/19 07:11 97.7 F 71 20 146/82 H 94 L 11/01/19 05:43 97.4 F L 84 96 H 151/67 H 96 Weight Admit Weight 105 lb 9.6 oz Weight 105 lb 9.6 oz Most Recent Monitor Data Heart Rate from ECG 93 NIBP 141/69 NIBP BP-Mean 93 Respiration from ECG 18 SpO2 100 I&O: 10/31/19 11/01/19 11/02/19 06:59 06:59 06:59 Intake Total 2387.5 2880 Output Total 725 Balance 2387.5 2155 Result Diagrams: 11/01/19 05:58 10/31/19 03:24 Hospitalist ROS - Review of Systems Constitutional: denies: fever, chills, sweats, weakness, malaise, other Respiratory: reports: shortness of breath. denies: cough, dry, hemoptysis, SOB with excertion, pleuritic pain, sputum, wheezing, other Cardiovascular: denies: chest pain, palpitations, orthopnea, paroxysmal noc. dyspnea, edema, light headedness, other Gastrointestinal: denies: nausea, vomiting, abdominal pain, diarrhea, constipation, melena, hematochezia, other - Medication Medications: Active Medications Generic Name Dose Route Start Last Admin Trade Name Freq PRN Reason Stop Dose Admin Hydrocodone Bitart/Acetaminophen 1 tab 10/28/19 07:37 10/30/19 09:27 [place] 5/325 PO 1 tab Q4H PRN Administration Moderate Pain (4-6) Albuterol/Ipratropium 3 ml 11/01/19 12:23 11/01/19 12:25 Duoneb NEB 3 ml Q6H PRN Administration SOB &/or Wheezing Chlorhexidine Gluconate 15 ml 10/29/19 21:00 11/01/19 08:14 Chlorhexidine Gluconate SSP 15 ml BID NAIN Administration Enoxaparin Sodium 40 mg 10/28/19 09:00 11/01/19 08:14 Lovenox SC Not Given 0900 NAIN Sodium Chloride 1,000 mls @ 125 mls/hr 10/28/19 07:45 11/01/19 15:53 Normal Saline 0.9% IV 1,000 mls .Q8H NAIN Administration Meropenem 1 gm/ Device 50 mls @ 100 mls/hr 10/29/19 16:00 11/01/19 15:53 IVPB 50 mls 0800,1600,2359 NAIN Administration Morphine Sulfate 2 mg 10/28/19 07:37 10/30/19 18:30 Morphine SLOW IVP 2 mg Q4H PRN Administration severe pain 4-10 Polyethylene Glycol 17 gm 10/28/19 09:00 11/01/19 08:15 Miralax PO 17 gm DAILY NAIN Administration Sodium Chloride 10 ml 10/28/19 09:00 11/01/19 08:14 Flush - Normal Saline IVF Not Given Q12HR NAIN - Exam General Appearance: NAD, awake alert Eye: PERRL ENT - other findings: swelling contiues to improve Heart: RRR, no murmur, no gallops Respiratory: no wheezes, no rales, no ronchi Respiratory - other findings: b/l reduced breath sounds Gastrointestinal: soft, non-tender, non-distended, normal bowel sounds Extremities: no edema Extremities - other findings: dry lower extremities Psychiatric: normal affect, normal behavior, A&O x 3 Hosp A/P - Plan #facial abscesses #infected dental implants -POD 3 s/p I&D; tolerated procedure well -continue meropenem per ID for polymicrobial coverage pending wound cultures; will transition to augmentin prior to DC #COPD -curently stable -continue duoneb PRN SOB/wheezing -started dulera #HTN -continue current regimen #dispoisition/ppx full code DVT PPx Lovenox GI PPx no Ix Transfer to medical floor
[2019-11-01] MEDS: Mometasone 200 MCG/Formoterol 5 MCG 120 PUFF INHALER INH SCH (19:03)
[2019-11-02] MEDS: Sodium Chloride 0.9% 1,000 ML IV SCH ×4 (00:25→20:25)
[2019-11-02] MEDS: MEROPENEM 1 GM/50 ML 1 GM in Premix Bag 1 BAG IVPB SCH ×2 (00:33→08:04)
[2019-11-02] MEDS: Mometasone 200 MCG/Formoterol 5 MCG 120 PUFF INHALER INH SCH ×2 (07:21→17:47)
[2019-11-02] MEDS: HYDROcodone/Acetaminophen 5/325 mg Tablet PO PRN ×2 (08:06→14:21)
[2019-11-02] MEDS: Polyethylene Glycol 3350 17 GM Packet PO SCH (08:24)
[2019-11-02] MEDS: Enoxaparin Sodium 40 MG/0.4 ML SYRINGE SC SCH (08:25)
[2019-11-02] MEDS: Chlorhexidine Gluconate 15 ML UDCUP SSP SCH ×2 (09:33→20:25)
[2019-11-02 10:14] LABS: Fungus Stain Final report (.)
[2019-11-02] MEDS: Amoxicillin/Potassium Clav 875 MG TAB PO SCH (20:25)
--- NOTE | 2019-11-02 21:15 | PDOC.HOSPP ---
- Subjective Encounter Date: 11/02/19 Encounter Time: 10:00 Subjective: no overnight events. breathing better after starting nebulizer treatments. no complains, facial swelling continues to improve - Objective Vital Signs & Weight: Vital Signs (12 hours) Temp Pulse Resp BP Pulse Ox 11/02/19 19:06 97.5 F L 68 18 152/76 H 95 11/02/19 17:47 66 18 98 11/02/19 15:51 97.3 F L 66 18 142/82 H 98 11/02/19 11:32 97.8 F 76 18 134/63 95 Weight Admit Weight 105 lb 9.6 oz Weight 105 lb 9.6 oz Most Recent Monitor Data Heart Rate from ECG 93 NIBP 141/69 NIBP BP-Mean 93 Respiration from ECG 18 SpO2 100 I&O: 11/01/19 11/02/19 11/03/19 06:59 06:59 06:59 Intake Total 2880 3750 2614 Output Total 725 350 Balance 2155 3400 2614 Result Diagrams: 11/01/19 05:58 10/31/19 03:24 Hospitalist ROS - Review of Systems Constitutional: denies: fever, chills, sweats, weakness, malaise, other ENT: denies: ear pain, ear discharge, nose pain, nose discharge, nose congestion , mouth pain, mouth swelling, throat pain, throat swelling, other Respiratory: denies: cough, dry, shortness of breath, hemoptysis, SOB with excertion, pleuritic pain, sputum, wheezing, other Cardiovascular: denies: chest pain, palpitations, orthopnea, paroxysmal noc. dyspnea, edema, light headedness, other Gastrointestinal: denies: nausea, vomiting, abdominal pain, diarrhea, constipation, melena, hematochezia, other - Medication Medications: Active Medications Generic Name Dose Route Start Last Admin Trade Name Freq PRN Reason Stop Dose Admin Hydrocodone Bitart/Acetaminophen 1 tab 10/28/19 07:37 11/02/19 14:21 [place] 5/325 PO 1 tab Q4H PRN Administration Moderate Pain (4-6) Albuterol/Ipratropium 3 ml 11/01/19 12:23 11/01/19 12:25 Duoneb NEB 3 ml Q6H PRN Administration SOB &/or Wheezing Amoxicillin/Clavulanate Potassium 875 mg 11/02/19 21:00 11/02/19 20:25 Augmentin PO 875 mg Q12HR NAIN Administration Chlorhexidine Gluconate 15 ml 10/29/19 21:00 11/02/19 20:25 Chlorhexidine Gluconate SSP 15 ml BID NAIN Administration Enoxaparin Sodium 40 mg 10/28/19 09:00 11/02/19 08:25 Lovenox SC Not Given 0900 [facility] Sodium Chloride 1,000 mls @ 125 mls/hr 10/28/19 07:45 11/02/19 20:25 Normal Saline 0.9% IV 1,000 mls .Q8H NAIN Administration Mometasone Furoate/Formoterol Fumar 2 puff 11/01/19 18:30 11/02/19 17:47 Dulera 200 Mcg/5 Mcg Inhaler INH 2 puff BID-RT NAIN Administration Morphine Sulfate 2 mg 10/28/19 07:37 10/30/19 18:30 Morphine SLOW IVP 2 mg Q4H PRN Administration severe pain 4-10 Polyethylene Glycol 17 gm 10/28/19 09:00 11/02/19 08:24 Miralax PO Not Given DAILY [facility] Sodium Chloride 10 ml 10/28/19 09:00 11/02/19 20:26 Flush - Normal Saline IVF Not Given Q12HR NAIN - Exam General Appearance: NAD, awake alert ENT - other findings: facial swelling nearly resolved; tubes serosanguinous Heart: RRR, no murmur, no gallops, no rubs, normal peripheral pulses Respiratory: CTAB, no wheezes, no rales, no ronchi, normal chest expansion, no tachypnea, normal percussion Gastrointestinal: soft, non-tender, non-distended, normal bowel sounds, no palpable masses, no hepatomegaly, no splenomegaly, no bruit Extremities: no edema Psychiatric: normal affect, normal behavior, A&O x 3 Hosp A/P - Plan #facial abscesses #infected dental implants -POD 4 s/p I&D; tolerated procedure well -transitioned to augmentin pending discharge #COPD -curently stable -continue duoneb PRN SOB/wheezing -continue dulera #HTN -continue current regimen #dispoisition/ppx full code DVT PPx Lovenox GI PPx no Ix Transfer to medical floor
[2019-11-03] MEDS: HYDROcodone/Acetaminophen 5/325 mg Tablet PO PRN ×3 (01:46→18:22)
[2019-11-03 06:43] LABS: Hemoglobin 12.6 g/dL (14.0-18.0); Mean Corpuscular HGB CONC 32.6 g/dL (32.0-36.0); Mean Corpuscular Hemoglobin 31.4 pg (27.0-31.0); Mean Corpuscular Volume 96.3 fL (78.0-98.0); Mean Platelet Volume 10.4 fL (7.4-10.4); Platelet Count 185 thou/uL (130-400); Red Blood Cell (RBC) Count 4.02 mill/uL (4.70-6.10); White Blood Cell (WBC) Count 9.3 thou/uL (4.8-10.8)
[2019-11-03 07:02] LABS: Anion Gap 5 mmol/L (10-20); BUN (Urea Nitrogen) 7 mg/dL (8.4-25.7); Calc. Creatinine Clearance 86 mL/min (70-130); Calcium 7.3 mg/dL (7.8-10.44); Carbon Dioxide 35 mmol/L (23-31); Chloride 105 mmol/L (98-107); Estimated GFR-MDRD Greater than 90; Glucose 105 mg/dL (80-115); Magnesium 1.7 mg/dL (1.6-2.6); Potassium 3.3 mmol/L (3.5-5.1); Sodium 142 mmol/L (136-145)
[2019-11-03 07:36] LABS: Phosphorus 1.6 mg/dL (2.3-4.7)
[2019-11-03] MEDS ORDERED: Potassium Phosphate 30 MMOL in Sodium Chloride 0.9% 250 ML 250 ML IVPB SCH (08:00)
[2019-11-03] MEDS: Sodium Chloride 0.9% 1,000 ML IV SCH ×2 (08:36→17:19)
[2019-11-03] MEDS: Amoxicillin/Potassium Clav 875 MG TAB PO SCH ×2 (08:38→22:23)
[2019-11-03] MEDS: Polyethylene Glycol 3350 17 GM Packet PO SCH (08:40)
[2019-11-03] MEDS: Enoxaparin Sodium 40 MG/0.4 ML SYRINGE SC SCH (08:40)
[2019-11-03] MEDS: Chlorhexidine Gluconate 15 ML UDCUP SSP SCH ×2 (08:42→22:23)
[2019-11-03] MEDS: Mometasone 200 MCG/Formoterol 5 MCG 120 PUFF INHALER INH SCH ×2 (08:50→19:43)
--- NOTE | 2019-11-03 17:45 | PDOC.HOSPP ---
- Subjective Encounter Date: 11/03/19 Encounter Time: 09:00 Subjective: no overnight events. this morning, feeling well and has no complaints. desatted to low 80s while ambulating with PT. Pending home oxygen and placement. - Objective Vital Signs & Weight: Vital Signs (12 hours) Temp Pulse Resp BP Pulse Ox 11/03/19 08:52 97 11/03/19 08:50 67 16 97 11/03/19 07:56 97.2 F L 78 16 126/66 94 L Weight Admit Weight 105 lb 9.6 oz Weight 105 lb 9.6 oz Most Recent Monitor Data Heart Rate from ECG 93 NIBP 141/69 NIBP BP-Mean 93 Respiration from ECG 18 SpO2 100 I&O: 11/02/19 11/03/19 11/04/19 06:59 06:59 06:59 Intake Total 3750 3814 560 Output Total 350 Balance 3400 3814 560 Result Diagrams: 11/03/19 05:57 11/03/19 05:57 Hospitalist ROS - Review of Systems Constitutional: denies: fever, chills, sweats, weakness, malaise, other Respiratory: denies: cough, dry, shortness of breath, hemoptysis, SOB with excertion, pleuritic pain, sputum, wheezing, other Cardiovascular: denies: chest pain, palpitations, orthopnea, paroxysmal noc. dyspnea, edema, light headedness, other Gastrointestinal: denies: nausea, vomiting, abdominal pain, diarrhea, constipation, melena, hematochezia, other - Medication Medications: Active Medications Generic Name Dose Route Start Last Admin Trade Name Freq PRN Reason Stop Dose Admin Acetaminophen 650 mg 10/28/19 07:37 11/03/19 13:09 Tylenol PO 650 mg Q4H PRN Administration Headache/Fever/Mild Pain (1-3) Hydrocodone Bitart/Acetaminophen 1 tab 10/28/19 07:37 11/03/19 06:21 [place] 5/325 PO 1 tab Q4H PRN Administration Moderate Pain (4-6) Albuterol/Ipratropium 3 ml 11/01/19 12:23 11/01/19 12:25 Duoneb NEB 3 ml Q6H PRN Administration SOB &/or Wheezing Amoxicillin/Clavulanate Potassium 875 mg 11/02/19 21:00 11/03/19 08:38 Augmentin PO 875 mg Q12HR NAIN Administration Chlorhexidine Gluconate 15 ml 10/29/19 21:00 11/03/19 08:42 Chlorhexidine Gluconate SSP 15 ml BID NAIN Administration Enoxaparin Sodium 40 mg 10/28/19 09:00 11/03/19 08:40 Lovenox SC Not Given 0900 [facility] Sodium Chloride 1,000 mls @ 125 mls/hr 10/28/19 07:45 11/03/19 17:19 Normal Saline 0.9% IV Not Given .Q8H NAIN Mometasone Furoate/Formoterol Fumar 2 puff 11/01/19 18:30 11/03/19 08:50 Dulera 200 Mcg/5 Mcg Inhaler INH 2 puff BID-RT NAIN Administration Morphine Sulfate 2 mg 10/28/19 07:37 10/30/19 18:30 Morphine SLOW IVP 2 mg Q4H PRN Administration severe pain 4-10 Polyethylene Glycol 17 gm 10/28/19 09:00 11/03/19 08:40 Miralax PO Not Given DAILY [facility] Sodium Chloride 10 ml 10/28/19 09:00 11/03/19 08:42 Flush - Normal Saline IVF 10 ml Q12HR NAIN Administration - Exam General Appearance: NAD, awake alert ENT - other findings: no change Heart: RRR, no murmur, no gallops, no rubs, normal peripheral pulses Respiratory: CTAB, no wheezes, no rales, no ronchi, normal chest expansion, no tachypnea, normal percussion Gastrointestinal: soft, non-tender, non-distended, normal bowel sounds, no palpable masses, no hepatomegaly, no splenomegaly, no bruit Extremities: no edema Psychiatric: normal affect, normal behavior, A&O x 3 Hosp A/P - Plan #facial abscesses #infected dental implants -POD 5 s/p I&D; tolerated procedure well -continue augmentin #COPD -curently stable -qualifies for home oxygen -continue duoneb PRN SOB/wheezing -continue dulera - #HTN -continue current regimen #dispoisition/ppx full code DVT PPx Lovenox GI PPx no Ix Pending home ox and placement. ELOS 1 midnight
[2019-11-03] MEDS ORDERED: Polyethylene Glycol 3350 17 GM Packet PO PRN (17:50)
[2019-11-03] MEDS ORDERED: Potassium Chloride 20 MEQ TAB PO SCH (18:00)
[2019-11-03] MEDS: PHOS-NAK 1 PKT PACK PO SCH (18:23)
[2019-11-04] MEDS: PHOS-NAK 1 PKT PACK PO SCH ×3 (01:41→11:13)
[2019-11-04 06:12] LABS: Anion Gap 3 mmol/L (10-20); BUN (Urea Nitrogen) 10 mg/dL (8.4-25.7); Calc. Creatinine Clearance 84 mL/min (70-130); Calcium 7.8 mg/dL (7.8-10.44); Carbon Dioxide 37 mmol/L (23-31); Chloride 102 mmol/L (98-107); Estimated GFR-MDRD Greater than 90; Glucose 83 mg/dL (80-115); Magnesium 1.7 mg/dL (1.6-2.6); Phosphorus 2.3 mg/dL (2.3-4.7); Potassium 4.2 mmol/L (3.5-5.1); Sodium 138 mmol/L (136-145)
[2019-11-04] MEDS: Mometasone 200 MCG/Formoterol 5 MCG 120 PUFF INHALER INH SCH (07:02)
[2019-11-04] MEDS: Chlorhexidine Gluconate 15 ML UDCUP SSP SCH (08:20)
[2019-11-04] MEDS: Enoxaparin Sodium 40 MG/0.4 ML SYRINGE SC SCH (08:20)
[2019-11-04] MEDS: Amoxicillin/Potassium Clav 875 MG TAB PO SCH (08:20)
[2019-11-04 14:00] VITALS: BP 162/88; TEMP 97.4
--- NOTE | 2019-11-06 09:27 | DIS ---
DATE OF ADMISSION: 10/28/2019 DATE OF DISCHARGE: 11/04/2019 HOSPITAL COURSE: Mr. Gonzalez is a 69-year-old male with a medical history of alcohol abuse, coronary artery disease, status post stent placement, hypertension, who presented with mouth and throat pain and left facial and eye swelling. He was diagnosed with infected dental implant with multiple facial abscesses. Maxillofacial Surgery was consulted and the patient underwent I and D and antibiotic treatment. He improved during his inpatient stay. Swelling mostly resolved and draining tubes were removed by Maxillofacial Surgery on the day of discharge. He was discharged on Augmentin, to complete treatment for a total of 14 days with followup appointment with Maxillofacial Surgery. PHYSICAL EXAMINATION: VITAL SIGNS: Blood pressure 162/88, temperature 97.4 Fahrenheit, pulse 68, respiratory rate 16, oxygen saturation 94% on 1 L nasal cannula. The patient was provided the oxygen at home. GENERAL: Emaciated, no apparent distress. Sitting comfortably on the chair. ENT: Left facial swelling and eye swelling, barely noticeable. HEART: Regular rate and rhythm. No murmur. No gallop. RESPIRATORY: Bilaterally reduced breath sounds. No wheezing, rales, or rhonchi. GI: Soft, nontender, nondistended. Normal bowel sounds. EXTREMITIES: No edema. PSYCHIATRIC: Proper mood and affect. Alert and oriented x3. NEW MEDICATIONS: 1. Augmentin 875 mg p.o. q.12 hours for 10 days. 2. Tylenol p.r.n. pain. 3. DuoNeb p.r.n. shortness of breath and/or wheezing. CONTINUED MEDICATIONS: Reilly Moreno. Job ID: [id number]
--- NOTE | 2019-11-07 08:10 | CON ---
DATE OF CONSULTATION: 10/29/2019 CONSULTING PHYSICIAN: Hospitalist Service. HISTORY OF PRESENT ILLNESS: This is a male who presented to the emergency room with a several week history of progressive left-sided facial swelling and pain. The patient has longstanding had no teeth in the upper jaw and an old blade implant in the lower jaw bilaterally, which was placed approximately 30 years ago. The patient denies any history of symptoms with the blade implant such as pain, mobility, or other noticeable problems prior to the development of this left-sided facial and neck swelling. 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 PAST SURGICAL HISTORY: Coronary artery stents, angioplasty, hernia repair. ALLERGIES: NO KNOWN DRUG ALLERGIES. SOCIAL HISTORY: Positive for approximately half pack per day cigarettes and remote history of alcohol, but denies current alcohol use. PHYSICAL EXAMINATION: GENERAL: The patient is somnolent and somewhat difficult to arouse on my presentation to his bedside initially. The patient has a decent amount of purulent sanguinous type discharge on his pillow and sheets as well as some caked around the commissures and lips. HEAD AND NECK: The patient has significant left facial and neck swelling with accompanying fluctuance. The swelling on the left extends from the temporal region down the buccal region and masseteric regions into the submandibular space region. Intraoral exam is difficult due to limitation in maximum interincisal opening and also his suppressed mental state. The facial swelling extends to the inferior eyelid and infraorbital region as well, and the left eye appears to be swollen and largely shut. On coaxing, the patient was able to open the eye and does not appear to be in visual acuity deficits or difficulty in mobility of the left eye. 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 There does not appear to be any mobility in the mandibular prosthesis. White blood cell count 17.5. IMAGING: CT scan of the face shows significant fluid collection throughout the left face and neck, including the left submandibular space, left pterygoid mandibular space, left masseteric space, left temporal space, and left buccal space. In addition to fluid collection, there is air emphysema throughout the entire regions of the abscesses as well. The abscess does track along the left lingual mandible up to one of the regions of the blade implant. On the CT scan of the face, there is question about whether or not the portion of the blade implant might be exposed lingually; however, it is not definitive and other than this, there is no obvious signs of bony pathology or pathology with the blade implants. ASSESSMENT: 1. Left submandibular space abscess. 2. Left pterygoid mandibular space abscess. 3. Left masseteric space abscess. 4. Left temporal space abscess. 5. Left buccal space abscess. PLAN: 1. The patient should be continued to be kept n.p.o. as the plan is to take the patient to the operating room today for incision and drainage of the abscesses involving all of the above-mentioned facial and neck spaces. The blade implant will be evaluated further intraoperatively and determination will be made around removal versus observation of the implant at this time. 2. Continue IV antibiotics and recommend consultation and recommendations from Dr. Rojas. Job ID: [id number]
--- NOTE | 2019-11-07 09:41 | OP ---
DATE OF PROCEDURE: 10/29/2019 PREOPERATIVE DIAGNOSES: 1. Left submandibular space abscess. 2. Left pterygomandibular space abscess. 3. Left masseteric space abscess. 4. Left temporal space abscess. 5. Left buccal space abscess. POSTOPERATIVE DIAGNOSES: 1. Left submandibular space abscess. 2. Left pterygomandibular space abscess. 3. Left masseteric space abscess. 4. Left temporal space abscess. 5. Left buccal space abscess. PROCEDURE PERFORMED: Transcervical incision and drainage of left submandibular, pterygomandibular, masseteric, buccal, and temporal space abscesses. INDICATION: This is a male, who presented with a several-week history of progressive left-sided facial and neck swelling and fluctuance, who was found to have advanced significant abscesses and fluid collections involving the left face and neck with both fluid collection and air emphysema within the abscesses. The etiology of the abscess is indeterminate, but the most likely source is a bilateral 30-year-old blade implant involving the bilateral mandible. The patient is brought to the operating room at this time for surgical treatment of the abscesses. DESCRIPTION OF PROCEDURE: The patient was identified in the ICU, and the Anesthesia Service subsequently transferred the patient to the operating room and to the operating room table in supine position. The patient was subsequently intubated via an oral intubation procedure without difficulty, and general anesthetic was induced. A surgical time-out was then performed. The oral cavity was prepped with Peridex oral rinse and a tooth brush, and a throat pack was placed. Local anesthetic was delivered to the left submandibular space, approximately 2 cm inferior to the inferior border. An incision site in the left submandibular space was then marked, again approximately 2 cm inferior to the inferior border. A 15 blade was used to make a skin incision in the submandibular space as planned, hemostasis was obtained with Bovie cautery, and the dissection was deepened in layers with a combination of blunt and sharp dissection until the platysma was reached. The platysma was dissected open using a blunt dissection, and the wound was extended using Bovie cautery. At this time, hemostats were then used to bluntly dissect toward the left submandibular space and fairly soon after this dissection began, the large abscess was entered and significant amounts of purulence were decompressed. Culture specimen swabs were then taken with this purulence obtained. It should be also noted that preoperatively, the patient had self decompressed portions of the abscess, both from the left sublingual region, left submandibular region, and left inferior eyelid regions. Although, decent amount of purulence had self decompressed, there was still significant amount of purulence throughout all of the facial and neck spaces that were mentioned above. After decompression of the left submandibular space, the dissection continued both on the facial aspect and lingual aspect of the mandible. Lingually, the pterygomandibular space was then advanced into and more purulence was obtained from this area. On the lingual aspect, the dissection continued further anteriorly from the initial entrance into the abscess to make sure the submandibular space was completely decompressed from an anterior-posterior dimension. Dissection continued facially on the mandible out into the submasseteric space, where more purulence was obtained and this dissection continued superiorly up into the left buccal space and toward the temporal space. Local anesthetic was then delivered in the left temporal region, where the patient's hair had been shaved slightly. A Ayesha-type incision was made in the left temporal region with a 15 blade, and hemostasis was obtained with cautery. The dissection was deepened in layers with Bovie cautery until the temporalis fascia was reached. Hemostats were then used to bluntly start creating a plane superficial to the temporalis fascia and this dissection continued inferiorly until the dissection into the buccal and temporal spaces from inferiorly were reached and the two were communicated. Intraorally, further evaluation of the blade implant revealed no obvious signs of pathology other than some generalized gingival inflammation consistent with the type of implant and the length of time that it has been in place. Due to the self decompression of the abscess lingually, there was exposed bone of the lingual mandible and visual inspection of the area showed no signs of blade implant exposure or pathology. Although it is impossible to say for sure whether or not there is any exposure of the blade implant, I was not able to visualize that and due to the lack of mobility and other signs of problems with the implant, decision was made to leave the implant in place for now. It still seems likely that the implant or at least the left portion of the implant will need to be removed at some point, but the current plan will be to get control of the infection prior to re-evaluating and the implant will be removed at a later date if deemed necessary, but it is likely that removal of this implant will involve significant destruction of the mandible in the area to explant the implant and so this will be delayed at this time pending response to the infection postoperatively. The abscesses were irrigated copiously in all locations using a JASPREET drain in an irrigating fashion with normal saline infused with bacitracin. The JASPREET drain was advanced into all affected spaces including the left submandibular, pterygomandibular, masseteric, temporal, and buccal spaces and these areas were copiously irrigated with bacitracin and infused normal saline. After copious irrigation, Albaro drains were then placed. A single quarter-inch Albaro drain was advanced through the submandibular incision, through the submandibular space, masseteric space, and into the temporal space and was subsequently advanced out of the temporal skin incision to create one continuous drain from temporal to submandibular regions. A second Bethesda drain was doubled over on itself and advanced through the submandibular wound into the pterygomandibular space, and a third quarter-inch Albaro drain was doubled over itself and placed through the left submandibular incision into the left submandibular space with portion of this drain communicating with the oral cavity via the rent in the sublingual tissues that was present, status post self decompression of the abscess into the oral cavity. All of these Albaro drains were sewn to the neck using 2-0 nylon drain stitch. The oral cavity was irrigated with saline and suctioned free of debris, and the throat pack was removed at this time. The face was then cleaned, and a quarter-inch iodoform dressing was packed into the area of the self-decompression wound in the left inferior eyelid and this packing was advanced through the wound in the eyelid out toward the left buccal and temporal space regions. The face and neck were then cleaned with saline and gauze, and dressings were placed over the temporal wound, the wounds in the inferior eyelid region, and the left submandibular wound. A gauze with extraoral tail was also placed intraorally to catch any drainage in the mouth. The patient was then turned over to Anesthesia for emergence and extubation, which ensued without complication. INTRAVENOUS FLUIDS: Please see anesthetic record for full details. ESTIMATED BLOOD LOSS: 25 mL. SPECIMENS: Purulence from the left submandibular space. IMPLANTS: None. DRAINS: Three quarter-inch Bethesda drains to the left submandibular incision. One of these extends through the masseteric, buccal, and temporal spaces to communicate with the left temporal incision and the other two drains advanced into the pterygomandibular and submandibular spaces. FINDINGS: Significant foul purulence throughout the left face and neck with preoperative self decompression of portions of the abscess, but significant remaining purulence throughout all affected spaces. Due to self decompression, there were preoperative wounds in the left sublingual area, left inferior eyelid, and left submandibular regions. COMPLICATIONS: None. DISPOSITION: The patient tolerated the procedure well and he was transferred back to the ICU in good condition postoperatively. Job ID: [id number]
--- NOTE | 2019-11-08 00:41 | PQF ---
JESUS HENSON KI CASTILLO, ZURDO [id number] [id number] CLINICAL DOCUMENTATION CLARIFICATION FORM: POST DISCHARGE Addendum to original discharge summary date: ____ Late entry note date: __ DATE:11/08/2019 ATTN:ZURDO CASTILLO Please exercise your independent, professional judgment in responding to the clarification form. Clinical indicators are provided on the bottom of this form for your review Please check appropriate box(s) to clarify if the following diagnosis has been ruled in or ruled out: Sepsis [ ] Ruled in diagnosis [ ] Continue to treat [ ] Resolved [ x ] Ruled out diagnosis [ ] Cannot rule out diagnosis [ ] Other diagnosis [ ] Unable to determine For continuity of documentation, please document condition throughout progress notes and discharge summary. Thank You. CLINICAL INDICATORS - SIGNS / SYMPTOMS / LABS -Sepsis due to facial cellulitis and abscess- Hospitalist H&P, 10/27, Margarito Briones MD -The etiology of the abscess is indeterminate, but the most likely source is a bilateral - Hospitalist H&P, 10/27, Margarito Briones MD -WBC: 15.8H, 18.8H, 18.2H, 17.5H- Laboratory report, -Temp: 97.4F, RR:94H, Pulse: 68- Vital signs,11/03 RISK FACTORS - Left submandibular space abscess- Consult report, 10/28, Martell Russell DDS, MD - Left buccal space abscess- Consult report, 10/28, Martell Russell DDS, MD TREATMENTS - Ampicillin.IV- JUL, 10/27 (This form is maintained as a part of the permanent medical record) 2014 [employer]. All Rights Reserved [employer]
--- NOTE | 2019-11-08 01:10 | PQF ---
JESUS HENSON ADI [id number] CLINICAL DOCUMENTATION CLARIFICATION FORM: POST DISCHARGE Addendum to original discharge summary date: ____ Late entry note date: __ DATE: 11/08/2019 ATTN: ZURDO CASTILLO Please exercise your independent, professional judgment in responding to the clarification form. Clinical indicators are provided on the bottom of this form for your review Please check appropriate box(s): [ ] Acute Respiratory Failure: [ ] Acute On Chronic Respiratory Failure [ ] ARDS (Acute Respiratory Distress Syndrome) [ ] Chronic Respiratory Failure only [ ] Other diagnosis [ ] Unable to determine For continuity of documentation, please document condition throughout progress notes and discharge summary. Thank You. CLINICAL INDICATORS - SIGNS / SYMPTOMS / LABS - Respiratory failure- Progress note, 10/29, Kenny Hernandez MD - Sat: 92L, 91L- Vital Signs, 10/30 - RR 18, 96H- Vital signs, 10/31 - Desatted to low 80s- Hospital PN, 11/02, ZURDO CASTILLO - duoneb PRM SOB/wheezing - Hospital PN, 11/02, ZURDO CASTILLO RISK FACTORS - COPD- Hospital PN, 11/02, UZRDO CASTILLO TREATMENTS: - 1L Nasal cannula- DS, 11/03, ZURDO CASTILLO - Duoneb- MAR, 10/27 (This form is maintained as a part of the permanent medical record) 2014 [employer]. All Rights Reserved [email or web address]
== END 2019-11-04 13:52 | disposition home or self-care (01) | DRG 579 ==
LOC: ERS 23:26 → IMCU/EMU 10-28 02:42 → T4-A 10-31 14:47
PROVIDERS: ADMIT Internal Medicine; ATTEND Internal Medicine
PROC: 0J910ZZ Drainage of Face Subcutaneous Tissue and Fascia, Open Approach (ICD-10-PCS; principal; 2019-10-29)
PROC: 0C940ZZ Drainage of Buccal Mucosa, Open Approach (ICD-10-PCS; 2019-10-29)
DX: L02.01 Cutaneous abscess of face (principal); J96.90 Respiratory failure, unspecified, unspecified whether with hypoxia or hypercapnia; K65.1 Peritoneal abscess; R64 Cachexia; Z68.1 Body mass index [BMI] 19.9 or less, adult; K12.2 Cellulitis and abscess of mouth; I25.10 Atherosclerotic heart disease of native coronary artery without angina pectoris; I10 Essential (primary) hypertension; E78.5 Hyperlipidemia, unspecified; F10.20 Alcohol dependence, uncomplicated; J44.9 Chronic obstructive pulmonary disease, unspecified; K03.89 Other specified diseases of hard tissues of teeth; F17.210 Nicotine dependence, cigarettes, uncomplicated; Z95.5 Presence of coronary angioplasty implant and graft; I25.2 Old myocardial infarction
CPT/HCPCS: 36415; 70487; 70491; 71045; 80048; 80053; 83605; 83735; 84100; 85025; 85027; 85652; 86140; 87040; 87070; 87102; 87205; 87206; 93005; 94640; 96361; 96365; J0289; J0290; J0295; J1170; J1650; J2001; J2185; J2270; J2310; J2370; J2704; J3010; J3370; J3490; J7050; J7070; J7620; Q9967